=== PATIENT | male | born 1975 | race Two or more races ===

== ENCOUNTER 2020-12-07 08:43 | Inpatient (IN) | payer MEDICAID ==
[~2020-12-07] VITALS: Ht 177.8 cm; Wt 87.2 kg
[2020-12-07] MEDS ORDERED: ALBUTEROL SULFATE HFA 90 MCG/PUFF 8 GM INHALER IH ONE (09:30)
[2020-12-07] MEDS ORDERED: DEXAMETHASONE SOD PHOS 4 MG/ML 5 ML VIAL IVP ONE (09:30)
[2020-12-07 09:56] LABS: BASOPHILS % (AUTO) 0.3 % (0.0-2.0); EOSINOPHILS % (AUTO) 0 % (1.0-6.0); HEMATOCRIT 41.2 % (41-53); HEMOGLOBIN 14.2 g/dL (13.5-17.5); LYMPHOCYTES # (AUTO) 0.7 K/uL (1.0-4.8); LYMPHOCYTES % (AUTO) 13.9 % (22.0-44.0); MEAN CORPUSCULAR HEMOGLOBIN 31.3 pg (26.0-34.0); MEAN CORPUSCULAR HGB CONC 34.5 G/dL (31.0-37.0); MEAN CORPUSCULAR VOLUME 91 fL (80-100); MONOCYTES # (AUTO) 0.2 K/uL (0.1-1.0); MONOCYTES % (AUTO) 3.5 % (2.0-9.0); NEUTROPHILS # (AUTO) 4.1 K/uL (1.8-7.7); NEUTROPHILS % (AUTO) 82.3 % (40.0-70.0); PLATELET COUNT (AUTO) 149 K/uL (150-450); RED BLOOD CELL COUNT(AUTO) 4.55 MIL/uL (4.50-5.90); RED CELL DISTRIBUTION WIDTH 12.6 % (11.5-14.5)
[2020-12-07 10:10] LABS: ANION GAP 8 mmol/L (8-16); CALCIUM, TOTAL 8.3 mg/dL (8.8-10.5); CARBON DIOXIDE 28 mmol/L (22-29); CHLORIDE 98 mmol/L (98-107); CREATININE 0.76 mg/dL (0.60-1.30); GLOMERULAR FILTR. RATE CALC > 60 mL/min (>60); GLUCOSE,RANDOM 138 mg/dL (70-110); POTASSIUM 3.9 mmol/L (3.5-5.1); SODIUM SERUM 134 mmol/L (136-145); UREA NITROGEN, BLOOD 9 mg/dL (7-18)
[2020-12-07 10:10] LABS: ABG A-A DIFF O2 45.4 mmHg (10-20.0); ABG BASE EXCESS 2.5 mmol/L (-2.0-3.0); ABG CARBOXYHEMOGLOBIN 0.9 % (0.0-1.5); ABG HCO3 26.7 mmol/L (22.0-26.0); ABG METHEMOGLOBIN 0.3 % (0.0-1.5); ABG OXYGEN SATURATION 92.5 % (95.0-98.0); ABG OXYHEMOGLOBIN 91.4 % (94.0-100.0); ABG PCO2 36 mmHg (35-45); ABG PH 7.474 (7.35-7.450); PO2, ARTERIAL BG 60.9 mmHg (88.0-96.0); SOURCE, BLOOD GAS ARTERIAL; TEMPERATURE, FAHRENHEIT, BG 98.1 FAHREN (96.0-98.6)
[2020-12-07 10:14] LABS: O2 DEVICE,BLOOD GAS ROOM AIR (ROOM AIR); SITE, BLOOD GAS RT RADIAL
[2020-12-07 10:14] LABS: D-DIMER 0.8 mg/L FEU (0.00-0.50); PROTHROMBIN TIME 10.8 SEC (9.4-11.6)
[2020-12-07 10:18] LABS: LACTIC ACID 1.2 mmol/L (0.4-2.0)
[2020-12-07 10:20] LABS: B-TYPE NATRIURETIC PEPTIDE 16 pg/mL (0-100)
[2020-12-07] MEDS ORDERED: CefTRIAXone 1 GM/DEXTROSE 50 ML IV ONE (10:30)
[2020-12-07] MEDS ORDERED: AZITHROMYCIN 500 MG/NS 250 ML IV ONE (10:30)
[2020-12-07 10:50] LABS: ALANINE AMINOTRANSFERASE 25 U/L (12-78); ALBUMIN 3.1 g/dL (3.4-5.0); ALKALINE PHOSPHATASE 51 U/L (46-116); ASPARTATE AMINOTRANSFERASE 43 U/L (15-37); BILIRUBIN,TOTAL 0.5 mg/dL (0.1-1.0); C-REACTIVE PROTEIN QUANT 12.18 mg/dL (0.00-0.30); CREATINE KINASE, TOTAL ONLY 103 U/L (39-308); FERRITIN 3117 ng/mL (26-388); LACTATE DEHYDROGENASE 460 U/L (85-227); TOTAL PROTEIN, SERUM 7.5 g/dL (6.4-8.2)
[2020-12-07 10:53] LABS: INFLUENZA TYPE A NEGATIVE FOR TYPE A (NEGATIVE); INFLUENZA TYPE B NEGATIVE FOR TYPE B (NEGATIVE)
[2020-12-07] MEDS ORDERED: ALBUTEROL SULFATE/IPRATROPIUM 100-20 MCG/SPRAY 4 GM INHALER IH PRN (11:30)
[2020-12-07] MEDS ORDERED: DOCUSATE SODIUM 100 MG CAPSULE PO PRN (11:45)
[2020-12-07] MEDS ORDERED: 0.9% SODIUM CHLORIDE 10 ML SYRINGE IVP PRN (11:45)
[2020-12-07] MEDS ORDERED: ACETAMINOPHEN 325 MG TABLET PO PRN (11:45)
[2020-12-07] MEDS ORDERED: BISACODYL 10 MG RECTAL RECTAL SUPPOSITORY PR PRN (11:45)
[2020-12-07] MEDS ORDERED: ONDANSETRON HCL 4 MG/2 ML VIAL IVP PRN (11:45)
[2020-12-07] MEDS ORDERED: MAGNESIUM HYDROXIDE SUSPENSION 30 ML UDCUP PO PRN (11:45)
[2020-12-07 12:33] LABS: APPEARANCE,URINE CLEAR (CLEAR); BILIRUBIN,URINE NEGATIVE (NEGATIVE); GLUCOSE, URINE (UA) NEGATIVE (NEGATIVE); KETONES,URINE NEGATIVE (NEGATIVE); LEUKOCYTE ESTERASE ,URINE NEGATIVE (NEGATIVE); NITRATE,URINE NEGATIVE (NEGATIVE); OCCULT BLOOD,URINE NEGATIVE (NEGATIVE); PROTEIN,URINE NEGATIVE (NEGATIVE)
[2020-12-07 12:38] LABS: AMPHET/METH SCREEN,URINE NEGATIVE (NEGATIVE); BARBITURATE SCREEN, URINE NEGATIVE (NEGATIVE); BENZODIAZEPINES SCREEN,URINE NEGATIVE (NEGATIVE); CANNABINOID SCREEN,URINE NEGATIVE (NEGATIVE); COCAINE SCREEN,URINE NEGATIVE (NEGATIVE); METHADONE SCREEN, URINE NEGATIVE (NEGATIVE); OPIATE SCREEN,URINE NEGATIVE (NEGATIVE); PHENCYCLIDINE SCREEN,URINE NEGATIVE (NEGATIVE)
[2020-12-07] MEDS: ZINC SULFATE 220 MG CAPSULE PO SCH ×2 (12:50→21:00)
[2020-12-07] MEDS: FluvoxaMINE MALEATE 50 MG TABLET PO SCH (12:50)
[2020-12-07] MEDS: FENOFIBRATE 48 MG TABLET PO SCH (12:50)
[2020-12-07 13:00] LABS: BACTERIA,URINE None Seen /HPF (None Seen); RBC,URINE None Seen /HPF (0-2); WBC,URINE None Seen /HPF (0-5)
[2020-12-07] MEDS: FAMOTIDINE 10 MG/ML 2 ML VIAL IVP SCH (13:45)
[2020-12-07] MEDS: ASCORBIC ACID 500 MG TABLET PO SCH ×2 (13:46→23:34)
[2020-12-07] MEDS: HEPARIN SODIUM,PORCINE 5,000 UNITS/ML VIAL SQ SCH (17:17)
[2020-12-07 20:55] VITALS: BP 118/78
[2020-12-07] MEDS ORDERED: IPRATROPIUM BROMIDE 0.5 MG/2.5 ML NEB SOLUTION NEB PRN (22:45)
[2020-12-07] MEDS ORDERED: ALBUTEROL SULFATE 2.5 MG/0.5 ML NEB SOLUTION NEB PRN (22:45)
[2020-12-08] MEDS: HEPARIN SODIUM,PORCINE 5,000 UNITS/ML VIAL SQ SCH ×2 (00:15→08:16)
[2020-12-08] MEDS: FAMOTIDINE 10 MG/ML 2 ML VIAL IVP SCH ×2 (00:16→08:18)
[2020-12-08 00:40] VITALS: BP 118/72
[2020-12-08 03:19] VITALS: BP 115/81
[2020-12-08 07:28] LABS: BASOPHILS % (AUTO) 0.1 % (0.0-2.0); EOSINOPHILS % (AUTO) 0 % (1.0-6.0); HEMATOCRIT 39.1 % (41-53); HEMOGLOBIN 13.5 g/dL (13.5-17.5); LYMPHOCYTES # (AUTO) 0.9 K/uL (1.0-4.8); LYMPHOCYTES % (AUTO) 11.7 % (22.0-44.0); MEAN CORPUSCULAR HEMOGLOBIN 31.2 pg (26.0-34.0); MEAN CORPUSCULAR HGB CONC 34.6 G/dL (31.0-37.0); MEAN CORPUSCULAR VOLUME 90 fL (80-100); MONOCYTES # (AUTO) 0.4 K/uL (0.1-1.0); MONOCYTES % (AUTO) 5.2 % (2.0-9.0); NEUTROPHILS # (AUTO) 6.4 K/uL (1.8-7.7); PLATELET COUNT (AUTO) 199 K/uL (150-450); RED BLOOD CELL COUNT(AUTO) 4.34 MIL/uL (4.50-5.90); RED CELL DISTRIBUTION WIDTH 12.4 % (11.5-14.5)
[2020-12-08 08:05] VITALS: BP 146/54
[2020-12-08 08:05] LABS: HEMOGLOBIN A1C 5.7 % (3.8-5.6)
[2020-12-08] MEDS: ZINC SULFATE 220 MG CAPSULE PO SCH (08:17)
[2020-12-08] MEDS: ASCORBIC ACID 500 MG TABLET PO SCH (08:17)
[2020-12-08] MEDS: FENOFIBRATE 48 MG TABLET PO SCH (08:17)
[2020-12-08] MEDS: FluvoxaMINE MALEATE 50 MG TABLET PO SCH (08:18)
[2020-12-08 08:31] LABS: ALANINE AMINOTRANSFERASE 34 U/L (12-78); ALBUMIN 2.9 g/dL (3.4-5.0); ALKALINE PHOSPHATASE 50 U/L (46-116); ANION GAP 6 mmol/L (8-16); ASPARTATE AMINOTRANSFERASE 52 U/L (15-37); BILIRUBIN,TOTAL 0.4 mg/dL (0.1-1.0); C-REACTIVE PROTEIN QUANT 9.06 mg/dL (0.00-0.30); CARBON DIOXIDE 30 mmol/L (22-29); CHLORIDE 102 mmol/L (98-107); CHOL/HDL RATIO 5.1 (4.2-7.3); CHOLESTEROL 157 mg/dL (131-200); CREATININE 0.74 mg/dL (0.60-1.30); FERRITIN 3105 ng/mL (26-388); FREE T4 (FREE THYROXINE) 1.24 ng/dL (0.76-1.46); GLOMERULAR FILTR. RATE CALC > 60 mL/min (>60); GLUCOSE,RANDOM 114 mg/dL (70-110); HDL CHOLESTEROL 31 mg/dL (40-60); LDL CHOL (CALC.) 98 mg/dL (0-130); POTASSIUM 4.8 mmol/L (3.5-5.1); SODIUM SERUM 138 mmol/L (136-145); THYROID STIMULATING HORMONE 0.38 uIU/mL (0.36-3.74); TOTAL PROTEIN, SERUM 7.2 g/dL (6.4-8.2); TRIGLYCERIDES 140 mg/dL (15-150); UREA NITROGEN, BLOOD 10 mg/dL (7-18)
[2020-12-08] MEDS ORDERED: DEXAMETHASONE SOD PHOS 4 MG/ML VIAL IVP SCH (09:00)
[2020-12-08 09:09] LABS: ERYTHROCYTE SEDIMENTATION RATE 53 MM/HR (0-15)
[2020-12-08 11:50] VITALS: BP 116/55
== END 2020-12-08 15:00 | disposition home or self-care (01) | DRG 137 ==
LOC: EMS 08:45 → 5N 17:49
PROVIDERS: ADMIT Internal Medicine; ATTEND Internal Medicine
DX: U07.1 COVID-19 (principal); J96.90 Respiratory failure, unspecified, unspecified whether with hypoxia or hypercapnia; J12.82 Pneumonia due to coronavirus disease 2019; R43.9 Unspecified disturbances of smell and taste; Z78.9 Other specified health status; Z79.899 Other long term (current) drug therapy; Z91.018 Allergy to other foods; E86.0 Dehydration
CPT/HCPCS: 36600; 70450; 71045; 80053; 80061; 81001; 82550; 82728; 82805; 83036; 83605; 83615; 83880; 84145; 84439; 84443; 84484; 85025; 85379; 85384; 85610; 85651; 85730; 86140; 87040; 87804; 93005; 93306; 93880; 99291; J0456; J0696; J1100; J1644; J3490; J3535; 36415-L1; 36415-TC; U0003

== ENCOUNTER 2021-06-10 13:06 | Emergency (ER) | payer MEDICAID, OTHER ==
[~2021-06-10] VITALS: Ht 177.8 cm; Wt 84.1 kg
[2021-06-10] MEDS ORDERED: ACETAMINOPHEN 500 MG TABLET PO ONE (14:15)
[2021-06-10] MEDS ORDERED: IBUPROFEN 400 MG TABLET PO ONE (14:15)
[2021-06-10 14:48] VITALS: BP 132/78
== END 2021-06-10 15:07 | disposition home or self-care (01) ==
LOC: EMS 13:07
DX: S16.1XXA Strain of muscle, fascia and tendon at neck level, initial encounter (principal); V49.9XXA Car occupant (driver) (passenger) injured in unspecified traffic accident, initial encounter; Y93.89 Activity, other specified; Y92.488 Other paved roadways as the place of occurrence of the external cause; Y99.8 Other external cause status
CPT/HCPCS: 99283